=== PATIENT | male | born 1955 | race Caucasian/White ===

== ENCOUNTER 2017-10-15 14:16 | Outpatient (CLI) | payer OTHER ==
--- NOTE | 2017-10-15 14:52 | RAD ---
LUMBAR SPINE 3 VIEWS: Date: 10/15/17 HISTORY: Disability evaluation, low back pain. 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 There is mild retrolisthesis of L1 over L2 vert ebral bodies (8 mm). No fracture or bony destruction is seen. Vascular calcifications are present. Th ere is minimal anterolisthesis of L5 over S1. 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 POS: [facility]
== END 2017-10-15 14:17 | disposition home or self-care (01) ==
LOC: NAV RAD 14:16
PROVIDERS: ATTEND Family Medicine
DX: Z02.71 Encounter for disability determination (principal); M54.9 Dorsalgia, unspecified; M47.896 Other spondylosis, lumbar region; M43.17 Spondylolisthesis, lumbosacral region
CPT/HCPCS: 72100